=== PATIENT | male | born 1965 | race Caucasian/White ===

== ENCOUNTER 2018-10-31 14:19 | Emergency (ER) | payer OTHER ==
[2018-10-31 14:32] VITALS: RESP 18; TEMP 97.6
[2018-10-31] MEDS ORDERED: KETOROLAC 60 MG/2 ML VIAL IM STA (14:40)
--- NOTE | 2018-10-31 14:53 | ED ---
Lower Extremity Injury HPI - General Chief Complaint: Extremity Injury, Lower Stated Complaint: Foot pain Time Seen by Provider: 10/31/18 14:35 Source: patient, RN notes reviewed Mode of arrival: ambulatory Limitations: no limitations - History of Present Illness Initial Comments: 53-year-old male present emergency department for right foot pain. Patient fracture in August states that he is in rehab and ian Azevedo took that off. Patient had follow-up after. Patient states he currently is living in a three-quarter house. Patient also complains of left jaw pain which has been ongoing for one month denies any trauma. He states he hears clicking and popping. Patient has not taken any recent Tylenol Motrin. - Related Data Previous Rx's Medication Instructions Recorded Ibuprofen [Motrin] 600 mg PO Q8HR PRN #30 tab 10/31/18 Allergies Allergy/AdvReac Type Severity Reaction Status Date / Time metformin Allergy Unknown Verified 10/31/18 14:33 Review of Systems ROS Statement: Those systems with pertinent positive or pertinent negative responses have been documented in the HPI. ROS Other: All systems not noted in ROS Statement are negative. Past Medical History Past Medical History: COPD, Deep Vein Thrombosis (DVT) Additional Past Medical History / Comment(s): multiple broken bones History of Any Multi-Drug Resistant Organisms: None Reported Past Surgical History: Hernia Repair, Orthopedic Surgery Additional Past Surgical History / Comment(s): Kidney removed, splenectomy, ulcer repair, Past Psychological History: Anxiety, Depression Smoking Status: Current every day smoker Past Alcohol Use History: None Reported Past Drug Use History: Heroin, Opiates General Exam Limitations: no limitations General appearance: alert, in no apparent distress Head exam: Present: atraumatic, normocephalic, normal inspection Eye exam: Present: normal appearance, PERRL, EOMI. Absent: scleral icterus, conjunctival injection, periorbital swelling ENT exam: Present: mucous membranes moist, TM's normal bilaterally, normal external ear exam. Absent: normal oropharynx (No abscess no erythema or lesions. Patient has no trismus though there is notable clicking popping the left TMJ region) Neck exam: Present: normal inspection, full ROM. Absent: tenderness, meningismus, lymphadenopathy Respiratory exam: Present: normal lung sounds bilaterally. Absent: respiratory distress, wheezes, rales, rhonchi, stridor Cardiovascular Exam: Present: regular rate, normal rhythm, normal heart sounds. Absent: systolic murmur, diastolic murmur, rubs, gallop, clicks Extremities exam: Present: other (Right foot tenderness across his second through fourth metatarsal, neurovascular intact no ecchymosis no swelling no ankle tenderness) Skin exam: Present: warm, dry, intact, normal color. Absent: rash Course Vital Signs 10/31/18 14:27 Temperature 97.6 F Pulse Rate 79 Respiratory 18 Rate Blood Pressure 145/102 O2 Sat by Pulse 97 Oximetry Medical Decision Making - Medical Decision Making 53-year-old male presented for right foot pain. Patient has noted fracture which is subacute. Patient was splinted and will follow-up with orthopedics. Patient also complains of jaw pain which is related to TMJ. Patient is advised flower buncher or picker by splint. Patient will be given ibuprofen and discharged orthopedics. Disposition Clinical Impression: Foot fracture, right, TMJ syndrome Disposition: HOME SELF-CARE Condition: Stable Instructions (If sedation given, give patient instructions): Foot Fracture in Adults (ED) Additional Instructions: Please return to the Emergency Department if symptoms worsen or any other concerns. Prescriptions: Ibuprofen [Motrin] 600 mg PO Q8HR PRN #30 tab PRN Reason: Pain Is patient prescribed a controlled substance at d/c from ED?: No Referrals: Drew Eckert MD [Medical Doctor] - 1-2 days Mahi Dill MD [STAFF PHYSICIAN] - 1-2 days Time of Disposition: 15:17
--- NOTE | 2018-10-31 15:12 | XR ---
EXAMINATION TYPE: XR foot complete RT DATE OF EXAM: 10/31/2018 COMPARISON: NONE HISTORY: Pain. Fall. TECHNIQUE: 3 views FINDINGS: There is an oblique fracture of the head of the fifth metatarsal. There is no dislocation. The other metatarsals are intact. Joint spaces are normal. IMPRESSION: Fifth metatarsal head fracture. Margins are slightly rounded that suggests that this is n ot an acute fracture.
[2018-10-31 15:26] VITALS: BP 144/74; PULSE 71
== END 2018-10-31 15:26 | disposition home or self-care (01) ==
LOC: EC 14:19
DX: S92.901A Unspecified fracture of right foot, initial encounter for closed fracture (principal); M26.602 Left temporomandibular joint disorder, unspecified; F17.200 Nicotine dependence, unspecified, uncomplicated; Z88.8 Allergy status to other drugs, medicaments and biological substances; X58.XXXA Exposure to other specified factors, initial encounter
CPT/HCPCS: 73630; 99283; 29515; 96372; J1885

== ENCOUNTER 2018-11-09 16:29 | Emergency (ER) | payer OTHER ==
--- NOTE | 2018-11-09 16:45 | ED ---
Chest Pain HPI - General Stated Complaint: Abd pain Time Seen by Provider: 11/09/18 16:29 Source: patient, EMS, RN notes reviewed Mode of arrival: EMS - History of Present Illness Initial Comments: This is a 53-year-old male with a history of narcotic abuse who is currently in a three-quarter house who is brought in by EMS today for complaints of left sided abdominal pain or radiated up into his chest additionally he states he has right foot pain. He states that he fell about a month ago striking the left side of his abdomen on a faucet was sticking out. He's had pain since that time he also states that he broke his foot August of this past year on the he has continued foot pain. He states he's not been able follow-up with orthopedics he did have a cast on for a while but it came off. He states his pain is 7 and 8/10 severity he was given Toradol by EMS in route to. He denies any nausea vomiting fevers chills sweats cough or other symptoms. He does have a history of a splenectomy in the past additionally he had a right kidney removed in the past. MD Complaint: chest pain, other - Related Data Home Medications Medication Instructions Recorded Confirmed Acetaminophen Tab [Tylenol Tab] 650 mg PO TID PRN 11/09/18 11/09/18 Baclofen 10 mg PO TID 11/09/18 11/09/18 Escitalopram Oxalate [Lexapro] 20 mg PO DAILY 11/09/18 11/09/18 Omeprazole 20 mg PO DAILY 11/09/18 11/09/18 Ondansetron [Zofran ODT] 8 mg PO TID PRN 11/09/18 11/09/18 Warfarin Sodium [Coumadin] 5 mg PO HS 11/09/18 11/09/18 diphenhydrAMINE [Benadryl] 50 mg PO HS 11/09/18 11/09/18 Previous Rx's Medication Instructions Recorded Ibuprofen [Motrin] 600 mg PO Q8HR PRN #30 tab 10/31/18 Ibuprofen 800 mg PO Q6HR PRN #20 tablet 11/09/18 Allergies Allergy/AdvReac Type Severity Reaction Status Date / Time metformin Allergy Unknown Verified 11/09/18 17:01 Review of Systems ROS Statement: Those systems with pertinent positive or pertinent negative responses have been documented in the HPI. ROS Other: All systems not noted in ROS Statement are negative. EKG Findings - EKG Results: EKG: interpreted by SUSAN MASON, sinus rhythm, normal axis, normal QRS, normal ST/ T, no acute changes (Normal sinus rhythm a 68. Interval 150 QRS duration 90 QT since QTC 386/[address]-T wave changes) Past Medical History Past Medical History: COPD, Deep Vein Thrombosis (DVT) Additional Past Medical History / Comment(s): multiple broken bones History of Any Multi-Drug Resistant Organisms: None Reported Past Surgical History: Hernia Repair, Orthopedic Surgery Additional Past Surgical History / Comment(s): Kidney removed, splenectomy, ulcer repair, Past Psychological History: Anxiety, Depression Smoking Status: Current every day smoker Past Alcohol Use History: None Reported Past Drug Use History: Heroin, Opiates General Exam - General Exam Comments Initial Comments: This is a well-developed well-nourished awake alert oriented 3 male General appearance: alert, in no apparent distress Head exam: Present: atraumatic, normocephalic, normal inspection Eye exam: Present: normal appearance, PERRL, EOMI. Absent: scleral icterus, conjunctival injection, periorbital swelling ENT exam: Present: normal exam, mucous membranes moist Neck exam: Present: normal inspection. Absent: tenderness, meningismus, lymphadenopathy Respiratory exam: Present: normal lung sounds bilaterally. Absent: respiratory distress, wheezes, rales, rhonchi, stridor Cardiovascular Exam: Present: regular rate, normal rhythm, normal heart sounds. Absent: systolic murmur, diastolic murmur, rubs, gallop, clicks GI/Abdominal exam: Present: soft, tenderness (Well-healed surgical scar midline left upper quadrant additionally he has some tenderness palpation of left upper quadrant left flank area. No guarding rebound masses or bruits), normal bowel sounds. Absent: distended, guarding, rebound, rigid Rectal exam: Present: deferred Extremities exam: Present: full ROM, normal capillary refill, other (Patient has had some pain to palpation of the foot he does wear boots at this time.). Absent: tenderness, pedal edema, joint swelling, calf tenderness Back exam: Present: normal inspection Neurological exam: Present: alert, oriented X3, CN II-XII intact Psychiatric exam: Present: normal affect, normal mood Skin exam: Present: warm, dry, intact, normal color. Absent: rash Course Vital Signs 11/09/18 11/09/18 11/09/18 16:41 17:00 17:30 Temperature 97.8 F Pulse Rate 71 72 69 Respiratory 18 18 18 Rate Blood Pressure 149/96 143/96 124/85 O2 Sat by Pulse 96 96 97 Oximetry 11/09/18 11/09/18 11/09/18 18:00 18:30 19:38 Temperature Pulse Rate 66 71 68 Respiratory 18 18 16 Rate Blood Pressure 134/101 142/94 141/94 O2 Sat by Pulse 98 98 95 Oximetry Chest Pain MDM - MDM Patient is feeling improved I did discuss findings with him. Patient does have evidence of a nonhealing fracture of the distal right fifth metatarsal. He is aware of the original fracture. CAT scan was negative for acute findings his INR was elevated 6.7. Patient will be discharged she is to hold his Coumadin for 2 days. He states he is moving back to [place] and will see his doctor there. The meantime he will have a Kyree shoe/tarsal shoe to be administered. He states he does have crutches also he is advised not to weight-bear on that foot until he isn't evaluated by orthopedics. Disposition Clinical Impression: Warfarin-induced coagulopathy, Metatarsal stress fracture of right foot with delayed healing, Abdominal pain Disposition: HOME SELF-CARE Condition: Good Instructions (If sedation given, give patient instructions): Abdominal Pain (ED ), Foot Fracture in Adults (ED) Additional Instructions: ED or follow-up with your doctor in [place]. Use her crutches and do not weight- bear on her right foot. Prescriptions: Ibuprofen 800 mg PO Q6HR PRN #20 tablet PRN Reason: Pain Is patient prescribed a controlled substance at d/c from ED?: No Referrals: Angela Burden MD [Primary Care Provider] - 1-2 days
[2018-11-09 16:46] VITALS: TEMP 97.8
[2018-11-09 17:12] LABS: Basophils # (A) 0.1 k/uL (0-0.2); Basophils % (A) 1 %; Eosinophils # (A) 0.5 k/uL (0-0.7); Eosinophils % (A) 5 %; HCT 48.2 % (39.0-53.0); Lymphocytes # (A) 3.8 k/uL (1.0-4.8); Lymphocytes % (A) 36 %; MCH 31.5 pg (25.0-35.0); MCHC 33.2 g/dL (31.0-37.0); MCV 94.9 fL (80.0-100.0); Mean Platelet Volume 7.5; Monocytes # (A) 0.9 k/uL (0-1.0); Monocytes % (A) 8 %; Neutrophils # (A) 5.2 k/uL (1.3-7.7); Neutrophils % (A) 49 %; Platelet Count 239 k/uL (150-450); RBC 5.08 m/uL (4.30-5.90); RDW 14.1 % (11.5-15.5); WBC 10.6 k/uL (3.8-10.6)
[2018-11-09 17:29] LABS: ALT 23 U/L (21-72); AST 22 U/L (17-59); Albumin 4.3 g/dL (3.5-5.0); Alkaline Phosphatase 79 U/L (38-126); Amylase 108 U/L (30-110); Anion Gap 10 mmol/L; Blood Urea Nitrogen 12 mg/dL (9-20); Calcium 9.7 mg/dL (8.4-10.2); Carbon Dioxide 20 mmol/L (22-30); Chloride 112 mmol/L (98-107); Glucose 97 mg/dL (74-99); Lipase 242 U/L (23-300); Magnesium 1.7 mg/dL (1.6-2.3); Potassium 4.5 mmol/L (3.5-5.1); Sodium 142 mmol/L (137-145); Total Bilirubin 0.5 mg/dL (0.2-1.3); Total Protein 7.7 g/dL (6.3-8.2)
[2018-11-09 17:36] LABS: Partial Thromboplastin Time 47.6 sec (22.0-30.0)
[2018-11-09 17:38] LABS: INR 6.7 (<1.2)
[2018-11-09 17:44] LABS: Creatine Kinase 65 U/L (55-170)
--- NOTE | 2018-11-09 17:48 | XR ---
PROCEDURE: XR foot complete RT - 3V DATE AND TIME: 11/09/2018 5:12 PM CLINICAL INDICATION: PHH; Pain TECHNIQUE: Department protocol COMPARISON: 10/31/2018 FINDINGS: The previously seen fifth metatarsal fracture is redemonstrated without interval change. No other fractures. Bones and joints and soft tissues are otherwise unremarkable. IMPRESSION: Stable radiographic appearance.
--- NOTE | 2018-11-09 17:49 | XR ---
EXAMINATION: XR chest 2V DATE AND TIME: 11/09/2018 5:14 PM CLINICAL INDICATION: PHH; Chest Pain TECHNIQUE: Departmental protocol COMPARISON: None FINDINGS: The lungs appear to be clear. The pleural spaces are negative. The cardiac silhouette is not enlarged. The skeletal structures and soft tissues are negative for acute findings. IMPRESSION: NO ACUTE PROCESS.
[2018-11-09 17:58] LABS: Creatine Kinase MB 0.6 ng/mL (0.0-2.4); Troponin I <0.012 ng/mL (0.000-0.034)
[2018-11-09] MEDS ORDERED: ACETAMINOPHEN IV (For NPO) 1,000 MG in SALINE 1 100ML.BAG IVPB STA (18:12)
--- NOTE | 2018-11-09 19:14 | CT ---
EXAMINATION TYPE: CT abdomen pelvis w con DATE OF EXAM: 11/09/2018 COMPARISON: None HISTORY: Left sided abdominal pain. CT DLP: 814.7 mGycm Automated exposure control for dose reduction was used. TECHNIQUE: Helical acquisition of images was performed from the lung bases through the pelvis. CONTRAST: Performed without Oral Contrast and with IV Contrast, patient injected with 100 mL of Isovu e 300. FINDINGS: LUNG BASES: No significant abnormality is appreciated. LIVER/GB: No significant abnormality is appreciated. Scalloped liver margins and caudate lobe promine nce is noted. PANCREAS: No significant abnormality is seen. SPLEEN: No significant abnormality is seen. ADRENALS: Negative. KIDNEYS: Surgical absence of the right kidney. The right renal bed is unremarkable. Left kidney is ne gative. PERITONEAL CAVITY: No pneumoperitoneum or fluid. RETROPERITONEAL ADENOPATHY: None visualized REPRODUCTIVE ORGANS: No significant abnormality is seen URINARY BLADDER: No significant abnormality is seen. PELVIC ADENOPATHY: None visualized. OSSEOUS STRUCTURES: No significant abnormality is seen. BOWEL: No significant abnormality is seen. OTHER: No acute vascular findings. IMPRESSION: NO ACUTE PROCESS; NO CT CORRELATE FOR THE PATIENT'S LEFT-SIDED SYMPTOMS.
[2018-11-09 19:38] VITALS: BP 141/94; PULSE 68; RESP 16
== END 2018-11-09 20:01 | disposition home or self-care (01) ==
LOC: EC 16:29
DX: S92.351G Displaced fracture of fifth metatarsal bone, right foot, subsequent encounter for fracture with delayed healing (principal); R10.12 Left upper quadrant pain; T45.515A Adverse effect of anticoagulants, initial encounter; D68.9 Coagulation defect, unspecified; F32.9 Major depressive disorder, single episode, unspecified; F41.9 Anxiety disorder, unspecified; F17.200 Nicotine dependence, unspecified, uncomplicated; Z86.718 Personal history of other venous thrombosis and embolism; Z79.01 Long term (current) use of anticoagulants; Z79.899 Other long term (current) drug therapy; Z88.8 Allergy status to other drugs, medicaments and biological substances; Z90.81 Acquired absence of spleen; W19.XXXD Unspecified fall, subsequent encounter; W22.8XXD Striking against or struck by other objects, subsequent encounter
CPT/HCPCS: 36415; 93005; 80053; 82150; 82550; 82553; 83690; 83735; 84484; 85025; 85610; 85730; 73630; 71046; 74177; 99285; 96365; J0131; Q9967